=== PATIENT | female | born 1995 | race Caucasian/White ===

== ENCOUNTER 2020-08-26 15:15 | Emergency (ER) | payer BC, MEDICAID, SELFPAY ==
--- NOTE | ~2020-08-26 | XR_ITS ---
EXAMINATION: XR CHEST CLINICAL INFORMATION: Pain COMPARISON: 03/20/2019 TECHNIQUE: Frontal view of the chest was obtained. FINDINGS: Lungs are clear. No focal consolidation or mass. Normal pulmonary vascularity. No pleural effusion or pneumothorax. Normal heart size. No acute osseous abnormality. XR/XR chest 1V IMPRESSION: No acute pulmonary disease. No significant change from prior study.
[2020-08-26 15:32] VITALS: BP 136/75; PULSE 125; RESP 20; TEMP 36.9; O2SAT 98; BMI 26.6
--- NOTE | 2020-08-26 15:45 | ECG_ITS ---
Test Reason : CHEST TIGHTNES Blood Pressure : / mmHG Vent. Rate : 104 BPM Atrial Rate : 104 BPM P-R Int : 150 ms QRS Dur : 080 ms QT Int : 336 ms P-R-T Axes : 054 063 045 degrees QTc Int : 441 ms Sinus tachycardia Otherwise normal ECG When compared with ECG of 11-JAN-2005 14:51, No significant changes seen Referred By: Generic ED Physician Electronically Signed By:ALEENA MAYS MD
[2020-08-26 15:52] LABS: MANUAL DIFF FLAG NO
[2020-08-26 15:56] LABS: Basophils Absolute Auto 0.1 X10*3/uL (0.0-0.2); Basophils Percent Auto 0.8 % (0-2); Eosinophils Absolute Auto 0.1 X10*3/uL (0.0-0.4); Eosinophils Percent Auto 0.7 % (0-4); Hematocrit 38.1 % (37-47); Hemoglobin 13.1 g/dl (12.0-16.0); Imm Gran Abs Auto 0.03 X10*3/uL (0.00-0.03); Imm Gran Pct Auto 0.3 % (0.0-0.4); Lymphocytes Percent Auto 25.7 % (20-40); Mean Corpuscular HGB Conc 34.4 g/dl (31.0-35.0); Mean Corpuscular Volume 90.1 fL (80-98); Monocytes Absolute Auto 0.6 X10*3/uL (0.1-1.2); Monocytes Percent Auto 5.5 % (2-11); Neutrophils Absolute Auto 7.9 X10*3/uL (2.0-8.3); Platelet Count 316 X10*3/uL (160-400); Red Blood Count 4.23 X10*6/uL (4.20-5.50); Red Cell Distribution Width 12.8 % (11.0-16.0); White Blood Count 11.7 X10*3/uL (4.8-10.8)
[2020-08-26 16:18] LABS: Alanine Aminotransferase 11 U/L (0-31); Albumin Level 4.8 g/dL (3.5-5.0); Alkaline Phosphatase 55 U/L (39-117); Anion Gap 16 (12-20); Aspartate Amino Transferase 19 U/L (5-31); Bilirubin Total 0.5 mg/dL (0.0-1.0); Blood Urea Nitrogen 11 mg/dL (9-16); Carbon Dioxide 23 mmol/L (22-29); Chloride 106 mmol/L (96-108); Creatinine Clr Calc Pharmacy 104.7; Estimated Glomerular Filt Rate > 60; Glucose Random 120 mg/dL (60-115); Sodium 141 mmol/L (135-145); Total Protein 7.9 g/dL (6.5-8.0)
[2020-08-26 16:52] VITALS: BP 173/88; PULSE 162; RESP 27; O2SAT 99
[2020-08-26] MEDS: 0.9 % Sodium Chloride 1,000 ML 999 ML IVCONT (16:58)
[2020-08-26] MEDS: LORazepam 2 MG/ML VIAL 1 MG IVPUSH (16:58)
--- NOTE | 2020-08-26 17:06 | PC.NURSE ---
PT UPRIGHT IN BED, RR EVEN SHALLOW UNLABORED, VISIBLE SWEAT ON BROW. PT C/O UNCONTROLLABLE BODYWIDE CRAMPING, PT TWISTING INTO VARIOUS CRAMPED POSITIONS IN BED, HOLDING HEAD FAR BACK, STICKING ARMS AND LEGS OUT IN ODD CONTORTIONS, ST ON TELE IN 130'S. PT DENIES HX OF SAME, STS UNKNOWN WHY OR HOW HAPPENED, PROVIDER AWARE.
[2020-08-26 17:23] VITALS: PULSE 79; RESP 16
--- NOTE | 2020-08-26 17:24 | PC.NURSE ---
S/P ATIVAN ADMIN PT L SIDE LYING IN BED SLEEPING, RR EVEN UNLABORED, NSR AT 79 ON TELE.
--- NOTE | 2020-08-26 17:35 | ED_ITS ---
HPI - General Adult General Chief complaint: General Medical Stated complaint: near syncope Time Seen by Provider: 08/26/20 15:51 History of Present Illness HPI narrative: Patient's complains of feeling like her whole body is tight her fingers are tingling her muscles are cramping, some anxiety She also felt some chest tightness This began after smoking marijuana this morning and continues in the emergency room Related Data Previous Rx's Medication Instructions Recorded permethrin 5 % topical cream 1 appl TOPICAL Q14D #60 g 06/13/20 lorazepam [Ativan] 1 mg PO TID PRN #7 tab 08/26/20 ondansetron HCl [Zofran] 4 mg PO Q6H PRN #10 tab 08/26/20 Allergies Allergy/AdvReac Type Severity Reaction Status Date / Time Sulfa (Sulfonamide Allergy Unknown HIVES Unverified 02/24/20 16:22 Antibiotics) [SULFA(SULFONAMIDE ANTIBIOTICS)] Review of Systems Review of Systems: Positive for muscle cramping, chest tightness, anxiety Negatives are no fever no chills no fainting no confusion no headache no neck pain no chest pain now no shortness of breath no abdominal pain no nausea or vom iting now, no dysuria no frequency no skin rash no weakness PMFSH Past Medical History PMFSH Narrative: Patient was seen yesterday in the [facility] Emergency Room for some low abdominal pain which got better and was diagnosed with endometriosis Source: nursing notes reviewed Medical History (Updated 08/26/20 @ 17:59 by CAROLE Patrick) Endometriosis Surgical History (Updated 08/26/20 @ 15:36 by Luis Enrique Bond) History of appendectomy History of left salpingo-oophorectomy Social History Social History Alcohol intake: never Smoking Status: Never smoker Use of substances other than those prescribed or required for medical reasons: Yes Substance Use Type: Marijuana Advance Directives: No Advance Directives Information Provided: No Physical Exam Vital Signs: Vital Signs: Last Vital Signs Temp 98.5 F 08/26/20 15:32 Pulse 79 08/26/20 17:23 Resp 16 08/26/20 17:23 BP 173/88 H 08/26/20 16:52 Pulse Ox 99 08/26/20 16:52 Body Mass Index 26.6 General appearance is no acute distress, A&O x3, responds to all questions appropriately, anicteric no pallor The pharynx is clear with mildly dry mucous membranes Head is normocephalic atraumatic Pupils equal round react to light extraocular motions are intact The neck is supple nontender The chest is clear to auscultation bilaterally, there is some tenderness to the chest wall The heart rate and rhythm regular no murmur auscultated Abdomen soft nontender Extremities full range of motion x4 Skin no rash Neuro no focal deficit, verbal interaction shows clear comprehension in communication, finger to nose is normal, there is no facial droop or asymmetry, there is no motor deficit motor is 5/5 x4, sensation intact and symmetrical in all extremities, cranial nerves 2-12 intact as tested Course Course Course Narrative: Patient came to the ER for anxiety muscle spasm and muscle tightness EKG was nondiagnostic Labs including CK did not show any significant abnormality Patient was hydrated and treated with Ativan which seemed to be helpful as patient relaxed and feels very improved and ready to go home Patient is advised that these symptoms are most likely from anxiety and mild dehydration and as well may have been a side effect from the marijuana she smoked today Medical Decision Making Lab Data Lab results reviewed: Yes I reviewed the patient's lab results. Result diagrams: 08/26/20 15:47 08/26/20 15:47 Labs: Lab Results 08/26/20 08/26/20 08/26/20 Range/Units 15:47 15:47 15:47 WBC 11.7 H (4.8-10.8) X10*3/uL RBC 4.23 (4.20-5.50) X10*6/uL Hgb 13.1 (12.0-16.0) g/dl Hct 38.1 (37-47) % MCV 90.1 (80-98) fL MCH 31.0 (27.0-33.0) pg MCHC 34.4 (31.0-35.0) g/dl RDW 12.8 (11.0-16.0) % Plt Count 316 (160-400) X10*3/uL MPV 10.0 (9.4-12.3) fL Immature Gran % (Auto) 0.3 (0.0-0.4) % Neut % (Auto) 67.0 (45-73) % Lymph % (Auto) 25.7 (20-40) % [place] % (Auto) 5.5 (2-11) % Eos % (Auto) 0.7 (0-4) % Baso % (Auto) 0.8 (0-2) % Lymph # (Auto) 3.0 (1.2-4.9) X10*3/uL [place] # (Auto) 0.6 (0.1-1.2) X10*3/uL Eos # (Auto) 0.1 (0.0-0.4) X10*3/uL Baso # (Auto) 0.1 (0.0-0.2) X10*3/uL Abs Immat Gran (auto) 0.03 (0.00-0.03) X10*3/uL Absolute Neuts (auto) 7.9 (2.0-8.3) X10*3/uL Absolute Nucleated RBC 0.000 (0.0-0.012) X10*3/uL Nucleated RBC % (auto) 0.0 (0.0-0.2) /100WBC Hold Purple Top SEE NOTE Hold Blue Top SEE NOTE Sodium (135-145) mmol/L Potassium (3.3-5.1) mmol/L Chloride (96-108) mmol/L Carbon Dioxide (22-29) mmol/L Anion Gap (12-20) BUN (9-16) mg/dL Creatinine (0.5-1.4) mg/dL Estim Creat Clear Calc Estimated GFR Random Glucose (60-115) mg/dL Calcium (8.4-10.2) mg/dL Total Bilirubin (0.0-1.0) mg/dL AST (5-31) U/L ALT (0-31) U/L Alkaline Phosphatase (39-117) U/L Total Creatine Kinase (26-140) U/L Total Protein (6.5-8.0) g/dL Albumin (3.5-5.0) g/dL Hold Yellow Top 08/26/20 08/26/20 Range/Units 15:47 15:47 WBC (4.8-10.8) X10*3/uL RBC (4.20-5.50) X10*6/uL Hgb (12.0-16.0) g/dl Hct (37-47) % MCV (80-98) fL MCH (27.0-33.0) pg MCHC (31.0-35.0) g/dl RDW (11.0-16.0) % Plt Count (160-400) X10*3/uL MPV (9.4-12.3) fL Immature Gran % (Auto) (0.0-0.4) % Neut % (Auto) (45-73) % Lymph % (Auto) (20-40) % [place] % (Auto) (2-11) % Eos % (Auto) (0-4) % Baso % (Auto) (0-2) % Lymph # (Auto) (1.2-4.9) X10*3/uL [place] # (Auto) (0.1-1.2) X10*3/uL Eos # (Auto) (0.0-0.4) X10*3/uL Baso # (Auto) (0.0-0.2) X10*3/uL Abs Immat Gran (auto) (0.00-0.03) X10*3/uL Absolute Neuts (auto) (2.0-8.3) X10*3/uL Absolute Nucleated RBC (0.0-0.012) X10*3/uL Nucleated RBC % (auto) (0.0-0.2) /100WBC Hold Purple Top Hold Blue Top Sodium 141 (135-145) mmol/L Potassium 4.0 (3.3-5.1) mmol/L Chloride 106 (96-108) mmol/L Carbon Dioxide 23 (22-29) mmol/L Anion Gap 16 (12-20) BUN 11 (9-16) mg/dL Creatinine 0.79 (0.5-1.4) mg/dL Estim Creat Clear Calc 104.7 Estimated GFR > 60 Random Glucose 120 H (60-115) mg/dL Calcium 10.0 (8.4-10.2) mg/dL Total Bilirubin 0.5 (0.0-1.0) mg/dL AST 19 (5-31) U/L ALT 11 (0-31) U/L Alkaline Phosphatase 55 (39-117) U/L Total Creatine Kinase 144 H (26-140) U/L Total Protein 7.9 (6.5-8.0) g/dL Albumin 4.8 (3.5-5.0) g/dL Hold Yellow Top See Note ECG Data Interpretation: EKG showed sinus tachycardia at a rate of 104, no acute ST or ischemic changes, ND interval was normal 150 milliseconds QRS duration was normal QT was normal Discharge Plan Discharge Clinical Impression: Dehydration, Anxiety Patient Disposition: Home, Self-Care Additional Instructions: I believe symptoms today were from anxiety and mild dehydration They could also be from marijuana use so I advise slowing down or stopping marijuana for a while and see if all symptoms go away Our workup today including EKG labs and x-ray did not show any dangerous or serious abnormality physical exam was normal Return to ER any time for any worse condition or any concerns Prescriptions: New ondansetron HCl [Zofran] 4 mg tablet 4 mg PO Q6H PRN (Reason: nausea and vomiting) Qty: 10 RF: 0 lorazepam [Ativan] 1 mg tablet 1 mg PO TID PRN (Reason: anxiety) Qty: 7 RF: 0 No Action permethrin 5 % cream 1 appl topical Q14D Qty: 60 RF: 0
[2020-08-26 18:00] VITALS: BP 121/85; PULSE 98; RESP 15; TEMP 36.8; O2SAT 98
== END 2020-08-26 19:02 | disposition home or self-care (01) ==
PROVIDERS: Physician Assistant Medical; Emergency Provider Internal Medicine; PCP Physician Assistant
DX: E86.0 Dehydration (principal); F41.1 Generalized anxiety disorder; F43.0 Acute stress reaction; R55 Syncope and collapse; F12.90 Cannabis use, unspecified, uncomplicated; Z79.899 Other long term (current) drug therapy
CPT/HCPCS: 36415; 71045; 80053; 82550; 85025; 93005; 96365; 96375; 99284; J2060

== ENCOUNTER → 2020-09-12 08:55 | Outpatient (BNVA) | payer BC, OTHER, SELFPAY | PROVIDERS: PCP Physician Assistant; Visit Provider Family Medicine Adult Medicine ==

== ENCOUNTER 2020-10-24 06:54 | Outpatient (REF) | payer BC, MEDICAID, SELFPAY | END 2020-10-24 06:55 | disposition home or self-care (01) | LOC: HO.RADIR 06:54 | PROVIDERS: Visit Provider Anesthesiology | DX: G89.29 Other chronic pain (principal); R10.2 Pelvic and perineal pain; N80.9 Endometriosis, unspecified; Z88.2 Allergy status to sulfonamides; Z90.79 Acquired absence of other genital organ(s); Z90.721 Acquired absence of ovaries, unilateral | CPT/HCPCS: 64517; J0690; J3300; Q9967 ==

== ENCOUNTER 2020-12-01 07:41 | Day surgery (SDC) | payer BC, MEDICAID, SELFPAY ==
[2020-11-27 08:27] VITALS: BMI 27.1
--- NOTE | ~2020-12-01 | FL_ITS ---
EXAMINATION: XR FLUOROSCOPY WITH IMAGES CLINICAL INFORMATION: Superior hypogastric plexus block COMPARISON: None. TECHNIQUE: Fluoroscopy performed by Pat. Fluoroscopy time: 2 minutes DAP: 9.98 Gycm2 Images: 3 FINDINGS: Needle and contrast is seen in place about the anterior aspect of the L5 vertebral body and sacrum. FL/FL guidance in OR IMPRESSION: Superior hypogastric plexus block
--- NOTE | 2020-12-01 07:48 | MHC.SHP ---
Pre-Procedural Eval Section A Date of Service: 12/01/20 The patient is an INPATIENT: No Changes since office visit: Yes Patient answered all questions The History & Physical has been completed within 30 days and I have reviewed it.: No Section B Chief Complaint: chronic pelvic pain Details of Present Illness: as above Relevant Family History (Specify if Yes): No Relevant Social History: None Present Medications: see Short Stay Collaborative assessment Medical History: Significant History (chronic pelvic pain) History of Previous Operations: No relevant previous surgery Allergies: Allergies Allergy/AdvReac Type Severity Reaction Status Date / Time Sulfa (Sulfonamide Allergy Unknown HIVES Verified 10/24/20 09:23 Antibiotics) [SULFA(SULFONAMIDE ANTIBIOTICS)] Review of Systems Sugical H&P ROS: Negative: Constitution, Cardiovascular, Respiratory, Neurological, Psychiatric, Hem-Onc, Allergic/Immunologic, Gastrointestinal, Genitourinary, Musculoskeletal, Integumentary, Endocrine and Eyes/Ears/Nose/Throat Exam Surgical H&P Exam: Normal: HEENT, Normal: Heart, Normal: Lungs, Normal: Extremities, Normal: Abdomen, Normal: Skin and Normal: Neurological Plan Diagnosis/Plan: Unchanged I have reviewed the history and physical and performed a pertinent physical examination on my patient. No changes have occurred unless specified.
--- NOTE | 2020-12-01 07:57 | HO.ANESPROP2 ---
PMFSH Active Problems Active Problems: All Active Problems (Updated 09/26/20 @ 16:33 by Triston Machado MD) Hyperkalemia (Acute) Chronic pelvic pain in female (Acute) Endometriosis (Acute) Pediculosis (Acute) Past Medical History Medical History (Updated 09/26/20 @ 16:33 by Triston Machado MD) Endometriosis Family History Family History (Updated 09/26/20 @ 15:56 by Leticia Cole) Mother Seizure Father Diabetes High cholesterol Surgical History Surgical History History of appendectomy History of left salpingo-oophorectomy Social History Social History Alcohol intake: never Substance Use Type: Marijuana Advance Directives: No Advance Directives Information Provided: Yes Meds Allergies Allergy/AdvReac Type Severity Reaction Status Date / Time Sulfa (Sulfonamide Allergy Unknown HIVES Verified 12/01/20 07:55 Antibiotics) [SULFA(SULFONAMIDE ANTIBIOTICS)] Exam Exam Date and Time: December 01, 2020 0757 Height,Weight and Vital Signs: Height 5 ft 4 in Weight 71.668 kg Airway Mallampati Class: I TM Dist: >3cm Neck ROM: Full
[2020-12-01 07:59] VITALS: RESP 16; TEMP 36.8; BMI 26.6
[2020-12-01 08:15] LABS: UPreg QC Valid YES; Urine Pregnancy NEGATIVE (NEGATIVE)
[2020-12-01] MEDS: Lactated Ringers 1,000 ML 100 ML IVCONT (08:27)
[2020-12-01 09:49] VITALS: BP 104/60; PULSE 64; RESP 18; TEMP 36.6; O2SAT 99
--- NOTE | 2020-12-01 09:58 | P.BOP_ITS ---
Brief Operative Note Date of Service: 12/01/20 Pre-op diagnosis: chronic pelvic pain Procedure: superior hypogastric plexus block Implants: none Surgeon: Clark Stewart MD Anesthesia: MAC Was an Pain Management Nurse Practitioner used for this Procedure?: No Estimated blood loss (mL): 0 Pathology: none sent Condition: stable
[2020-12-01 10:04] VITALS: BP 103/48; PULSE 55; RESP 18; O2SAT 99
[2020-12-01 10:18] VITALS: BP 133/82; PULSE 78; RESP 20; TEMP 36.2; O2SAT 99
[2020-12-01] MEDS: ondansetron HCL 4 MG/2 ML VIAL IVPUSH (10:18)
--- NOTE | 2020-12-04 14:05 | P.OP_ITS ---
Operative Note Operative Note Date of Service: 12/01/20 Narrative: Superior hypogastric plexus block bilateral. After obtaining informed consent from the patient and thoroughly explaining the procedure the patient was taking to the operating room where she was positioned prone operating table with a pillow under her pelvis. [place] [employer] monitors were applied and patient was minimal sedated. She received 2 g of cefazolin intravenously 30 minutes before procedure for prophylaxis of possible discitis. The time-out was performed for the patient delineating correct procedure, correct medication, correct site, correct side, patient's allergy. Her lower back was prepped with ChloraPrep and draped with fenestrated drape, sterilely draped C-arm was brought over the operating field and sq picture of L5 and S1 vertebrae as were demonstrated on the screen. The attention was concentrated on the Right side 1st , the import export agent of the C-arm was tilted 25? ipsilateral to the right. The position of the sacralization of L5 vertebra was noted on the screen. The S 0 foramina of the few sacral bone was chosen as the target for the injection on the right. . After that 25 gauge 1/2 inch needle was used to infiltrate the projection of the Most inferior and most lateral point of the external foramina of S0. After that 22 gauge 5 in needle was inserted through the foramina most inferior and lateral portion and advanced to the most medial portion of the internal foramina on the intermittent anterior posterior and lateral views. When the needle cleared few mm from the internal foramina and into the projection of the retro pelvic space the needle was stopped and attention was concentrated on the left side. The advancement of the needle on the left side was attempted in the mirroring fashion to S 0 foramina on the right. unfortunately advancement of the needle at this site was complicated by severe paresthetic sensations and patient reported significant discomfort. The decision was made to withdraw the needle. After that the contrast was injected into the right-sided needle and spread of the contrast was spilling over to the left side. The decision was made to inject 7 cc of treatment medicine into the right needle only. The injection went uneventfully. The content of the medication was bupivacaine 0.5% 5 cc and 80 mg of Kenalog. Upon completion of the injection the needle was removed and sterile dressing was applied. The patient tolerated procedure well. She was taking outside of the operating room to recovery room where she recovered uneventfully.
== END 2020-12-01 10:50 | disposition home or self-care (01) ==
PROVIDERS: Internal Medicine; PCP Physician Assistant; Visit Provider Anesthesiology
PROC: (CPT 64517; principal; 2020-12-01 13:20)
DX: R10.2 Pelvic and perineal pain (principal); G89.29 Other chronic pain; N80.9 Endometriosis, unspecified; E87.5 Hyperkalemia; Z90.721 Acquired absence of ovaries, unilateral; F12.90 Cannabis use, unspecified, uncomplicated; Z88.2 Allergy status to sulfonamides; B85.2 Pediculosis, unspecified
CPT/HCPCS: 64517; 81025; J0690; J2250; J2405; J2765; J3010; J3300; Q9967

== ENCOUNTER 2021-03-11 09:47 | Emergency (ER) | payer OTHER, SELFPAY ==
[2021-03-11 09:51] VITALS: BP 146/88; PULSE 90; O2SAT 98
== END 2021-03-11 12:04 | disposition left against medical advice (07) ==
PROVIDERS: Emergency Provider Emergency Medicine
DX: R10.9 Unspecified abdominal pain (principal)

== ENCOUNTER 2021-05-14 21:51 | Emergency (ER) | payer OTHER, SELFPAY ==
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
[2021-05-14 22:15] VITALS: BP 137/82; PULSE 102; RESP 20; TEMP 36.6; O2SAT 100; BMI 20.5
[2021-05-15 00:40] VITALS: BP 132/78; PULSE 98; RESP 20; O2SAT 100
[2021-05-15 01:06] LABS: HCG Quantitative < 2 mIU/mL
== END 2021-05-15 02:12 | disposition home or self-care (01) ==
PROVIDERS: Nurse Practitioner Family; Emergency Provider Emergency Medicine
DX: S16.1XXA Strain of muscle, fascia and tendon at neck level, initial encounter (principal); S20.212A Contusion of left front wall of thorax, initial encounter; S40.012A Contusion of left shoulder, initial encounter; S70.02XA Contusion of left hip, initial encounter; V43.52XA Car driver injured in collision with other type car in traffic accident, initial encounter; Y93.9 Activity, unspecified; Y92.410 Unspecified street and highway as the place of occurrence of the external cause; Y99.9 Unspecified external cause status
CPT/HCPCS: 36415; 70450; 71101; 72125; 73502; 84702; 99283; 99284

== ENCOUNTER 2021-06-13 09:25 | Outpatient (REF) | payer OTHER, SELFPAY ==
[2021-06-13 10:58] LABS: COVID-19 Test Positive (Negative)
== END 2021-06-13 09:26 | disposition home or self-care (01) ==
LOC: HO.LAB 09:25
PROVIDERS: Visit Provider Internal Medicine
DX: Z20.822 Contact with and (suspected) exposure to COVID-19 (principal)
CPT/HCPCS: 87635; C9803

== ENCOUNTER 2021-08-21 12:00 | Outpatient (RCR) | payer OTHER, SELFPAY ==
--- NOTE | 2021-07-16 18:13 | MHC.PT.EP ---
[facility] [place] Office [place] Office [place] Office [address] Liset Coffman [address] [phone] F: [phone] F: [phone] F: [phone] F: [phone] Physical Therapy Plan of Care Date of Evaluation: Date of Surgery: N/A Diagnosis: thoracolumbar & lumbosacral intervertebral disc disorder Assessment: pt presents to physical therapy with pain, decreased range of motion, decreased strength, impaired functional mobility, impaired postural awareness, and gait deviations. pt is a good candidate for skilled PT due to age, potential remediation of impairments, typical disease/condition progression and prognosis, comorbidities, and motivation. pt would benefit from tailored strengthening and stretching exercise program, functional training, gait training, postural re-training, neuromuscular re-education, modalities as needed for pain, equipment safety demonstration. Frequency and Duration: The patient will be seen 2x/wk for 5 wks Short Term Goals: pt will be I w/ HEP to promote self-management of condition. pt will demo proper sitting posture w/ lumbar roll to promote neutral spine w/ seated ADLs. Group Home Goals: pt will report a statistically significant improvement in self-reported outcome measure, Carlotta, to promote return to PLOF. pt will demo proper lifting mechanics x5 reps of 10-15# w/ no verbal cueing to promote return to picking up grocery bags. Treatment Plan: Modalities to reduce pain, spasms and effusion. Manual therapy to restore motion and function. Therapeutic exercise to improve strength and flexibility. Neuromuscular re-education for posture and balance. Therapeutic activities to return to functional activities of daily living. Electronically signed by: Eduarda Bergman PT, DPT Please sign and return to therapist. Thank you for your referral.
--- NOTE | 2021-09-10 15:13 | MHC.PT.DC ---
[facility] [place] Office [place] Office [place] Office [address] Liset Coffman 140 [facility] [phone] F: [phone] F: [phone] F: [phone] F: [phone] Physical Therapy Discharge Report Diagnosis: thoracolumbar & lumbosacral intervertebral disc disorder Date of Surgery: N/A Date of Evaluation: 07/16/21 Date of Discharge: 09/10/21 Treatments to Date: 7 Cancellations to Date: 6 No Shows to Date: 0 Discharge Status: Recommend MD Follow-up Discharge Summary: The patient has recently been admitted to [facility] for reasons not known to this therapist. She was still currently admitted as of 08/28/21. The extent of why the patient has been hospitalized is unknown. Due to potential change in status she is being discharged from this physical therapy plan of care until she can be re-evaluated by a physician to determine when she is appropriate to return to PT. Electronically signed by: Eduarda Bergman PT, DPT Please sign and return to therapist. Thank you for your referral.
== END 2021-09-10 15:13 | disposition home or self-care (01) ==
LOC: HO.PT 12:00
PROVIDERS: PCP Physician Assistant; Visit Provider Physician Assistant
DX: M51.9 Unspecified thoracic, thoracolumbar and lumbosacral intervertebral disc disorder (principal); M54.2 Cervicalgia
CPT/HCPCS: 97110; 97140; 97162; 97530

== ENCOUNTER 2022-06-26 07:42 | Emergency (ER) | payer OTHER, SELFPAY ==
--- NOTE | ~2022-06-26 | XR_ITS ---
EXAMINATION: XR FOREARM, RIGHT CLINICAL INFORMATION: Cat bite COMPARISON: None TECHNIQUE: AP and lateral views of the right forearm were obtained. FINDINGS: The bones and soft tissues are normal. No fracture. Imaged portions of the elbow and wrist are unremarkable. No radiopaque foreign bodies are seen. No subcutaneous air is present. XR/XR forearm RT 2V IMPRESSION: Normal right forearm.
[2022-06-26 07:45] VITALS: BP 121/79; PULSE 88; RESP 19; TEMP 36.6; O2SAT 99; BMI 29.2
[2022-06-26 08:30] VITALS: BP 131/81; RESP 20; TEMP 36.1
[2022-06-26] MEDS: Amoxicillin/Potassium Clav 875 MG TABLET PO (08:39)
[2022-06-26] MEDS: Ketorolac Tromethamine 15 MG/ML VIAL IM (08:39)
[2022-06-26] MEDS: Rabies Immune Globulin/PF 900 UNIT/3 ML VIAL 1542.22 UNIT IM (09:11)
--- NOTE | 2022-06-26 09:58 | ED.ANIMALBIT ---
HPI - Animal Bite General Chief Complaint: Animal Bite Stated Complaint: Cat bite Time Seen by Provider: 06/26/22 08:00 Source: patient Mode of arrival: ambulatory Limitations: no limitations History of Present Illness HPI narrative: 27-year-old female with no significant past medical history presents to the emergency department after sustaining multiple cat bites, from a friend's cat, at 2:00 a.m. She reports multiple bites on her right forearm with swelling and pain moving pronatation/supination with complaints of numbness in her fingers. She states the cat is unvaccinated and she is unsure whether not the cat goes outside. unrelated to the animal bite, she is also complaining of a red and dry rash on her posterior neck. She denies any discomfort or burning sensation with the rash and states she was wearing a necklace when the rash began, she then removed a necklace, and the rash improved moderately but still remains. MD complaint: animal bite Onset (ago): hour(s) Animal: cat Description of animal: household pet Location - Extremities: right: forearm Pain description: constant Severity scale (1-10): 8 Context: unprovoked Associated symptoms: numbness Related Data Previous Rx's Medication Instructions Recorded permethrin 5 % topical cream 1 appl topical Q14D 2 doses #60 06/13/20 grams lorazepam 1 mg tablet (Ativan) 1 mg PO TID PRN anxiety #7 tabs 08/26/20 ondansetron HCl 4 mg tablet 4 mg PO Q6H PRN nausea and 08/26/20 (Zofran) vomiting #10 tabs ibuprofen 600 mg tablet 600 mg PO Q6H PRN pain #10 tabs 05/15/21 acetaminophen 300 mg-codeine 30 mg 1 tab PO Q8H PRN pain 4 days #12 05/29/21 tablet tabs cyclobenzaprine 5 mg tablet 5 mg PO TID PRN muscle spasm #7 05/29/21 tabs amoxicillin 875 mg-potassium 1 tab PO BID 10 days #20 tabs 06/26/22 clavulanate 125 mg tablet hydrocortisone 1 % topical cream 1 appl topical TID PRN rash #28.35 06/26/22 grams Allergies Allergy/AdvReac Type Severity Reaction Status Date / Time Sulfa (Sulfonamide Allergy Unknown HIVES Verified 05/29/21 14:25 Antibiotics) [SULFA(SULFONAMIDE ANTIBIOTICS)] Review of Systems Review of Systems: In addition to documented HPI above, the additional ROS was obtained: Constitutional: No Weight loss, No Fever, No Chills ENT/Mouth: No Ear Pain, No Nasal Congestion, No Sinus Pain, No Hoarseness, No sore throat, No Rhinorrhea, No Swallowing Difficulty Cardiovascular: No Chest Pain, No SOB Respiratory: No Cough, No Sputum, No Wheezing Gastrointestinal: No Nausea, No Vomiting, No Diarrhea, No Constipation, No Abdominal pain Genitourinary: No Dysuria, No Urinary Frequency, No Hematuria, No Urinary Incontinence/retention, No Urgency, No Flank Pain Musculoskeletal: No joint pain, No Myalgias, No Joint Swelling Skin: No Skin Lesions, No rash Neuro: No Weakness, No Paresthesias Yes all other systems are reviewed and are negative [facility] Past Medical History Attestation statement: The following information was validated with the patient. Source: old records reviewed Medical History Endometriosis Surgical History History of appendectomy History of left salpingo-oophorectomy Family History Family History Mother Seizure Father Diabetes High cholesterol Social History Social History Alcohol intake: current Alcohol intake frequency: a few times a month Patient Tobacco Use Status: Never used Tobacco Smoked in Last 30 Days: No Use of substances other than those prescribed or required for medical reasons: Yes Substance Use Type: Marijuana Substance Use Frequency: Occasionally Advance Directives: No Advance Directives Information Provided: No Physical Exam ED Vital Signs: Vital Signs - 24 hr 06/26/22 07:45 06/26/22 08:30 Temperature 98 F 97.0 F Pulse Rate 88 Respiratory Rate 19 20 Blood Pressure 121/79 131/81 Pulse Oximetry 99 Oxygen Delivery Method Room Air BMI result Body Mass Index 29.2 Nursing notes and vital signs reviewed. GENERAL APPEARANCE: A&0 x 4, generally well appearing, no acute distress HENMT: Normal to inspection, atraumatic, face symmetrical. Normal external ears, nose, and oropharynx clear. EYE: PERRLA, EOM intact, structures appear normal NECK: Supple without lymphadenopathy. No stiffness or restricted ROM. CHEST: Normal to inspection HEART: Normal rate and regular rhythm, normal S1/S2, no M/R/G LUNGS: LS CTA, moving air well. Able to speak in complete sentences. No crackles, wheezes, or rhonchi auscultated ABDOMEN: Soft, nontender, nondistended. Normal bowel sounds noted BACK: No CVAT, no obvious deformity EXTREMITIES: Moving LUE, LLE, and RLE without difficulty. No cyanosis, clubbing, or edema. Normal capillary refill. Several small wounds present on distal and proximal forearm as results of an animal bite. Swelling noted on dorsal and volar forearm without erythema. Diminished strenght RUE due to pain NEUROLOGICAL: Alert and oriented. CN not formally tested but appearing grossly intact. Observed to ambulate with normal gait. Cognition normal SKIN: Warm and dry without any lesions, rash, or visible sores PSYCH: Cooperative, normal affect, normal thought process Course Course Course Narrative: 829: plan to begin Augmentin for antibiotic prophylaxis and rabies vaccine due to cat bite. plan for Toradol for pain control and x-ray to rule out bone involvement or foreign body. Medications Administered Discontinued Medications Generic Name Dose Route Start Last Admin Trade Name Freq PRN Reason Stop Dose Admin Amoxicillin/Clavulanate Potassium 875 mg 06/26/22 08:29 06/26/22 08:39 Amoxicillin/Potassium Clav 875 Mg Tablet PO 06/26/22 08:30 875 mg ONCE ONE Administration Ketorolac Tromethamine 15 mg 06/26/22 08:29 06/26/22 08:39 Ketorolac Tromethamine 15 Mg/Ml Vial IM 06/26/22 08:30 15 mg ONCE ONE Administration Rabies Immune Globulin 1,542.22 unit 06/26/22 08:33 06/26/22 09:11 Rabies Immune Globulin/Pf 900 Unit/3 Ml Vial 20 unit/kg (1542.22 unit) 06/26/22 08:34 1,542.22 unit IM Administration ONCE ONE Medical Decision Making Medical Decision Making MDM Narrative: 27-year-old female with no significant past medical history presents to the emergency department after sustaining multiple cat bites, from a friend's cat, at 2:00 a.m. She reports multiple bites on her right forearm with swelling and pain moving pronatation/supination with complaints of numbness in her fingers. Right forearm x-ray unremarkable. Rabies vaccine and Augmentin given for antibiotic prophylaxis. Plan to continue 10 day course of Augmentin outpatient. Toradol given for discomfort with good relief pain. Patient is safe for discharge at this time with plan to manage discomfort with [id number] Tylenol and/or NSAIDs. HPI, PE, diagnostics, and plan discussed with patient with no unanswered questions at this time. Patient educated to return to the emergency department with redness, swelling, drainage, warmth at the right forearm, fever, chills, or concerning emergent symptoms. Recommended to follow-up with her primary care provider for further treatment and management. *Refer to Course for additional information on consultations, diagnostic interpretation, consultations, emergency department stay, conversations with patient and family, shared decision making with patient, and more information on medical decision making* Independent Interpretation I performed an independent interpretation of an: Plain X-Ray Interpretation: I independently reviewed the right forearm x-ray showing a normal right forearm, bones and soft tissues normal, no fracture, no foreign body Radiology Impression Discussion of test interpretation with radiology: I have reviewed the radiologist's reading. Radiologist Impression: EXAMINATION: XR FOREARM, RIGHT CLINICAL INFORMATION: Cat bite? COMPARISON: None? TECHNIQUE: AP and lateral views of the right forearm were obtained. FINDINGS: The bones and soft tissues are normal. No fracture. Imaged portions of the elbow and wrist are unremarkable. No radiopaque foreign bodies are seen. No subcutaneous air is present. XR/XR forearm RT 2V IMPRESSION: Normal right forearm. Dictated By: Ethan Nair MD Signed By: <Electronically signed by Ethan Nair MD in OV> 06/26/22 0858 DD/ 0853 TD/TT:? Box Liner: SS Discharge Plan Discharge Clinical Impression: Cat bite, Rash and nonspecific skin eruption Patient Disposition: Home, Self-Care Instructions: Animal Bite (ED), Contact Dermatitis (ED), Rabies (ED) Additional Instructions: Your right arm x-ray is negative for foreign bodies or bone injury you have received a rabies vaccine today as you or bitten by cat. Your also being sent home on a 10 day prescription of antibiotics to prevent infection from the cat bite. Please take for prescription. Please return to the emergency department with redness, swelling, drainage from your arm. Please follow-up the primary care provider for further treatment and management. Prescriptions: New amoxicillin-pot clavulanate 875-125 mg tablet 1 tab PO BID 10 Days Qty: 20 0RF hydrocortisone 1 % cream 1 appl topical TID PRN (Reason: rash) Qty: 28.35 0RF Rx Instructions: Apply to affected area No Action permethrin 5 % cream 1 appl topical Q14D Qty: 60 0RF Rx Instructions: apply second treatment 14 days after first treatment if live mites remain ondansetron HCl [Zofran] 4 mg tablet 4 mg PO Q6H PRN (Reason: nausea and vomiting) Qty: 10 0RF lorazepam [Ativan] 1 mg tablet 1 mg PO TID PRN (Reason: anxiety) Qty: 7 0RF Rx Instructions: Use only if needed for anxiety, may cause drowsiness so no driving for 6 hours after taking ibuprofen 600 mg tablet 600 mg PO Q6H PRN (Reason: pain) Qty: 10 0RF cyclobenzaprine 5 mg tablet 5 mg PO TID PRN (Reason: muscle spasm) Qty: 7 0RF acetaminophen-codeine 300-30 mg tablet 1 tab PO Q8H PRN (Reason: pain) 4 Days Qty: 12 0RF Referrals: [facility] [Provider Group] [facility] [Provider Group] [facility] [Provider Group] Print Language: Estonian
--- NOTE | 2022-06-26 10:23 | PC.NURSE ---
orders for the rabies vacine faxed to [facility] and the domestic animal bite faxed over
== END 2022-06-26 10:25 | disposition home or self-care (01) ==
PROVIDERS: Emergency Provider Emergency Medicine
DX: S51.851A Open bite of right forearm, initial encounter (principal); W55.01XA Bitten by cat, initial encounter; R21 Rash and other nonspecific skin eruption; Y93.9 Activity, unspecified; Y92.009 Unspecified place in unspecified non-institutional (private) residence as the place of occurrence of the external cause; Y99.9 Unspecified external cause status; Z23 Encounter for immunization
CPT/HCPCS: 73090; 90375; 90471; 96372; 99284; J1885

== ENCOUNTER 2022-06-29 09:55 | Outpatient (REF) | payer OTHER, SELFPAY | END 2022-06-29 09:56 | disposition home or self-care (01) | LOC: HO.MDS 09:55 | PROVIDERS: PCP Physician Assistant; Visit Provider Radiology Vascular & Interventional Radiology | DX: Z29.14 Encounter for prophylactic rabies immune globulin (principal); S51.851D Open bite of right forearm, subsequent encounter; W55.01XD Bitten by cat, subsequent encounter; Z20.3 Contact with and (suspected) exposure to rabies | CPT/HCPCS: 90471; 90675 ==

== ENCOUNTER 2022-07-03 06:50 | Outpatient (REF) | payer OTHER, SELFPAY | END 2022-07-03 06:51 | disposition home or self-care (01) | LOC: HO.MDS 06:50 | PROVIDERS: Visit Provider Radiology Vascular & Interventional Radiology | DX: Z29.14 Encounter for prophylactic rabies immune globulin (principal); S51.851D Open bite of right forearm, subsequent encounter; W55.01XD Bitten by cat, subsequent encounter; Z20.3 Contact with and (suspected) exposure to rabies | CPT/HCPCS: 90471; 90675 ==

== ENCOUNTER 2022-07-10 13:06 | Outpatient (REF) | payer OTHER, SELFPAY | END 2022-07-10 13:07 | disposition home or self-care (01) | LOC: HO.MDS 13:06 | PROVIDERS: Visit Provider Radiology Vascular & Interventional Radiology | DX: Z29.14 Encounter for prophylactic rabies immune globulin (principal); T14.8XXD Other injury of unspecified body region, subsequent encounter; W55.01XD Bitten by cat, subsequent encounter; Z20.3 Contact with and (suspected) exposure to rabies | CPT/HCPCS: 90471; 90675 ==

== ENCOUNTER → 2023-07-03 12:49 | Outpatient (BNVA) | payer OTHER, SELFPAY | PROVIDERS: PCP Physician Assistant; Visit Provider Physician Assistant | DX: S83.91XA Sprain of unspecified site of right knee, initial encounter (principal); S93.401A Sprain of unspecified ligament of right ankle, initial encounter; W18.09XA Striking against other object with subsequent fall, initial encounter | CPT/HCPCS: 73564; 73610; 99204 ==

== ENCOUNTER → 2023-07-10 09:22 | Outpatient (BNVA) | payer OTHER, SELFPAY | PROVIDERS: PCP Physician Assistant; Visit Provider Physician Assistant | DX: S83.91XD Sprain of unspecified site of right knee, subsequent encounter (principal); W18.09XD Striking against other object with subsequent fall, subsequent encounter | CPT/HCPCS: 99214 ==

== ENCOUNTER → 2023-07-17 08:50 | Outpatient (BNVA) | payer OTHER, SELFPAY | PROVIDERS: PCP Physician Assistant; Visit Provider Physician Assistant | DX: M23.91 Unspecified internal derangement of right knee (principal) | CPT/HCPCS: 99214 ==

== ENCOUNTER 2023-07-17 12:54 | Outpatient (REF) | payer OTHER, SELFPAY ==
--- NOTE | ~2023-07-17 | MR_ITS ---
EXAMINATION: MR KNEE WITHOUT CONTRAST, RIGHT CLINICAL INFORMATION: Unable to bear weight. COMPARISON: Radiograph dated 01/01/2024. TECHNIQUE: MRI of the knee without contrast was performed using routine sequences on a high-field scanner. FINDINGS: MENISCI: Medial Meniscus: Intact. Lateral Meniscus: Intact. LIGAMENTS: Cruciate: Intact. Collateral: Intact. EXTENSOR MECHANISM: Focal edema signal is present in the superolateral aspect of Hoffa's fat pad. Quadriceps and patellar tendons are normal. ARTICULAR CARTILAGE/BONE: No fracture, malalignment, or osseous contusion. Patellofemoral Compartment: There is a vertical band of low signal intensity in the central trochlear cartilage measuring 6 mm in length, associated with subtle cortical remodeling and underlying sclerosis, consistent with a chondral fissure. Articular cartilage is otherwise normal. Normal trochlear morphology. Medial Compartment: Normal. Lateral Compartment: Normal. JOINT FLUID AND BURSAE: No joint effusion or bursitis. Trace Anderson's cyst. MR/MR knee RT wo con IMPRESSION: 1. Focal edema signal in the superolateral aspect of Hoffa's fat pad as can be seen with patellar tendon-lateral femoral condyle friction syndrome. 2. Small chondral fissure in the central trochlea. 3. Trace Anderson's cyst. 4. Intact ligaments and menisci.
== END 2023-07-17 12:55 | disposition home or self-care (01) ==
LOC: HO.MRI 12:54
PROVIDERS: Visit Provider Internal Medicine
DX: T84.062A Wear of articular bearing surface of internal prosthetic right knee joint, initial encounter (principal)
CPT/HCPCS: 73721

== ENCOUNTER → 2023-07-22 10:34 | Outpatient (BNVA) | payer OTHER, SELFPAY | PROVIDERS: PCP Physician Assistant; Visit Provider Physician Assistant | DX: S83.91XD Sprain of unspecified site of right knee, subsequent encounter (principal); W18.09XD Striking against other object with subsequent fall, subsequent encounter | CPT/HCPCS: 99214 ==

== ENCOUNTER → 2025-05-30 12:57 | Outpatient (BNVA) | payer OTHER, SELFPAY | PROVIDERS: PCP Physician Assistant; Visit Provider Physician Assistant Medical | DX: S20.219A Contusion of unspecified front wall of thorax, initial encounter (principal); S29.012A Strain of muscle and tendon of back wall of thorax, initial encounter; Y04.2XXA Assault by strike against or bumped into by another person, initial encounter; M81.0 Age-related osteoporosis without current pathological fracture | CPT/HCPCS: 71101; 99204 ==

== ENCOUNTER → 2025-06-01 09:17 | Outpatient (BNVA) | payer OTHER, SELFPAY | PROVIDERS: PCP Physician Assistant; Visit Provider Physician Assistant | DX: S20.211A Contusion of right front wall of thorax, initial encounter (principal); Y04.2XXA Assault by strike against or bumped into by another person, initial encounter | CPT/HCPCS: 99213 ==

== ENCOUNTER → 2025-06-06 08:13 | Outpatient (BNVA) | payer OTHER, SELFPAY | PROVIDERS: PCP Physician Assistant; Visit Provider Emergency Medicine | DX: S20.211A Contusion of right front wall of thorax, initial encounter (principal); Y04.2XXA Assault by strike against or bumped into by another person, initial encounter | CPT/HCPCS: 99214 ==